=== PATIENT | female | born 2000 | race Caucasian/White ===

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

== ENCOUNTER 2021-09-07 07:47 | Outpatient (CLI) | payer OTHER, SELFPAY ==
--- NOTE | 2021-09-07 07:54 | US_ITS ---
WS: [id number] ULTRASOUND RIGHT BREAST HISTORY: N63.10 - Unspecified lump in the right breast, 21-year-old. COMPARISON: None available. TECHNIQUE: 2-D and Doppler. Ultrasound is directed to 7:00 RIGHT breast in the area of the palpable abnormality. Normal fibroglan dular tissue is identified. No solid or cystic masses. No edema or soft tissue distortion. US/US breast RT limited* [id number] IMPRESSION: BI-RADS: 1-Negative FOLLOW-UP: See Report No additional imaging follow-up necessary. No abnormality identified.
== END 2021-09-07 07:48 | disposition home or self-care (01) ==
LOC: RAD 07:48
PROVIDERS: PCP Electrodiagnostic Medicine; Visit Provider Nurse Practitioner Women's Health
DX: N63.10 Unspecified lump in the right breast, unspecified quadrant (principal)
CPT/HCPCS: 76642

== ENCOUNTER → 2022-03-15 11:35 | Outpatient (BNVA) | payer OTHER, SELFPAY | PROVIDERS: PCP Electrodiagnostic Medicine; Referring Provider Electrodiagnostic Medicine; Visit Provider Internal Medicine | DX: E05.90 Thyrotoxicosis, unspecified without thyrotoxic crisis or storm (principal) | CPT/HCPCS: 36415; 83516; 84439; 84443; 84480; 86376 ==

== ENCOUNTER 2022-05-05 09:33 | Outpatient (CLI) | payer OTHER, SELFPAY ==
[2022-05-05 10:26] LABS: Free T4 Free Thyroxine 1.14 ng/dL (0.82-1.77)
[2022-05-07 06:15] LABS: T3 Total 111 ng/dL (86-192)
== END 2022-05-05 09:34 | disposition home or self-care (01) ==
PROVIDERS: PCP Electrodiagnostic Medicine; Visit Provider Internal Medicine
DX: E05.90 Thyrotoxicosis, unspecified without thyrotoxic crisis or storm (principal)
CPT/HCPCS: 84439; 84443; 84480

== ENCOUNTER → 2022-09-19 11:36 | Outpatient (BNVA) | payer OTHER, SELFPAY | PROVIDERS: PCP Electrodiagnostic Medicine; Visit Provider Nurse Practitioner Women's Health | DX: Z01.419 Encounter for gynecological examination (general) (routine) without abnormal findings (principal); Z12.4 Encounter for screening for malignant neoplasm of cervix; Z30.431 Encounter for routine checking of intrauterine contraceptive device; N91.3 Primary oligomenorrhea | CPT/HCPCS: 88175 ==

== ENCOUNTER → 2023-09-25 09:21 | Outpatient (BNVA) | payer OTHER, SELFPAY | PROVIDERS: PCP Electrodiagnostic Medicine; Visit Provider Nurse Practitioner Women's Health | DX: E05.90 Thyrotoxicosis, unspecified without thyrotoxic crisis or storm (principal); Z01.419 Encounter for gynecological examination (general) (routine) without abnormal findings | CPT/HCPCS: 84439; 84443 ==

== ENCOUNTER → 2024-04-18 11:50 | Outpatient (BNVA) | payer OTHER, SELFPAY | PROVIDERS: PCP Electrodiagnostic Medicine; Visit Provider Nurse Practitioner Women's Health | DX: N91.3 Primary oligomenorrhea (principal); N91.5 Oligomenorrhea, unspecified | CPT/HCPCS: 80053; 83036; 83525; 84403 ==

== ENCOUNTER → 2024-07-17 08:48 | Outpatient (BNVA) | payer OTHER, SELFPAY | PROVIDERS: PCP Electrodiagnostic Medicine; Visit Provider Nurse Practitioner Women's Health | DX: N92.6 Irregular menstruation, unspecified (principal) | CPT/HCPCS: 76830 ==

== ENCOUNTER → 2024-09-05 09:52 | Outpatient (BNVA) | payer OTHER, SELFPAY | PROVIDERS: PCP Electrodiagnostic Medicine; Visit Provider Nurse Practitioner Women's Health | DX: N91.3 Primary oligomenorrhea (principal) | CPT/HCPCS: 82306 ==

== ENCOUNTER → 2024-10-01 10:08 | Outpatient (BNVA) | payer OTHER, SELFPAY | PROVIDERS: PCP Electrodiagnostic Medicine; Visit Provider Nurse Practitioner Women's Health | DX: N92.6 Irregular menstruation, unspecified (principal); E05.90 Thyrotoxicosis, unspecified without thyrotoxic crisis or storm; Z12.4 Encounter for screening for malignant neoplasm of cervix | CPT/HCPCS: 84439; 84443; 84481; 84702; 88175 ==

== ENCOUNTER → 2024-12-04 07:38 | Outpatient (BNVA) | payer OTHER, SELFPAY | PROVIDERS: PCP Electrodiagnostic Medicine; Visit Provider Registered Nurse Neonatal Intensive Care | DX: J02.9 Acute pharyngitis, unspecified (principal) | CPT/HCPCS: 87880 ==

== ENCOUNTER → 2024-12-16 08:21 | Outpatient (BNVA) | payer OTHER, SELFPAY | PROVIDERS: PCP Electrodiagnostic Medicine; Visit Provider Nurse Practitioner Women's Health | DX: N97.9 Female infertility, unspecified (principal) | CPT/HCPCS: 82670; 83001; 83002; 83520; 84146; 86850; 86900 ==

== ENCOUNTER → 2025-01-12 07:54 | Outpatient (BNVA) | payer OTHER, SELFPAY | PROVIDERS: PCP Electrodiagnostic Medicine; Visit Provider Nurse Practitioner Women's Health | DX: Z13.29 Encounter for screening for other suspected endocrine disorder (principal) | CPT/HCPCS: 84144 ==